=== PATIENT | female | born 1945 | race Caucasian/White ===

== ENCOUNTER 2017-12-25 04:40 | Emergency (ER) | payer MEDICARE, OTHER, SELFPAY ==
[2017-12-25 04:42] VITALS: BP 133/100; PULSE 91; RESP 20; TEMP 36.7; O2SAT 97; BMI 30.2
--- NOTE | 2017-12-25 05:02 | CT_ITS ---
STUDY: CT ABDOMEN AND PELVIS WITHOUT CONTRAST REASON FOR EXAM: Female, 72 years old. Abdominal pain RADIATION DOSAGE (If Supplied By Facility): CTDIvol = ( 15.20 ) mGy, DLP = ( 725.47 ) mGycm TECHNIQUE: Transaxial images were obtained from the dome of the diaphragm to the symphysis pubis without oral contrast, and without intravenous contrast. Sagittal and coronal images were reconstructed. Individualized dose optimization techniques were used for this CT. COMPARISON: None. FINDINGS: The visualized lung bases are unremarkable. The visualized portions of the heart are within normal limits. The liver is normal in size. There is a 2.6 cm cyst in the LEFT lobe of the liver. There is NO solid liver mass. There has been a cholecystectomy. The bile ducts are normal in caliber. Normal spleen. Normal pancreas. Normal bilateral adrenal glands. Normal right kidney. Normal left kidney. Normal visualized stomach. Normal small intestine. Normal colon. The appendix is visualized and appears normal. Normal abdominal aorta. Normal inferior vena cava. Normal retroperitoneum. Normal urinary bladder. Uterus and ovaries are unremarkable. There is NO ascites, free air, abscess or adenopathy. Normal abdominal wall. Normal osseous structures. CT/Abdomen/Pelvis without Cont IMPRESSION: The liver is normal in size. There is a 2.6 cm cyst in the LEFT lobe of the liver. There is NO solid liver mass. There has been a cholecystectomy. The bile ducts are normal in caliber. There are NO kidney stones. There is NO hydronephrosis. Normal visualized stomach. Normal small intestine. Normal colon. The appendix is visualized and appears normal. Uterus and ovaries are unremarkable. There is NO ascites, free air, abscess or adenopathy. Electronically Signed: Peyman Sellers MD at 6:07 EDT , Service support ,
--- NOTE | 2017-12-25 05:05 | ED.DCSUM_ITS ---
- ER Visit Summary Date of Service: 12/25/17 Chief Complaint: [Right flank pain] History of Present Illness: The patient is a 72 F [who presents the emergency department with right flank pain. It started yesterday afternoon as a twitching in her side. She went and played cards last night. She had increasing pain in her right back radiating around to the right side. It is worse with movement especially when she turns to the left. No nausea or vomiting bowel movements have been normal urination has been normal she had some chills before she went to bed last night. She has a history of hypertension hyperlipidemia PEs after hip surgery osteopenia she has had a cholecystectomy left hip fracture with surgery and right ankle surgery.] Physical Examination: [] Blood pressure 133/100 respiratory rate 20 heart rate 91 pulse ox 97% on room air temperature 98.1 WN WD NAD PERRL EOMI MMM NECK supple and nontender, no masses RRR no murmur rub or gallop, no peripheral edema, symmetric radial pulses CTAB no respiratory distress ABDOMEN is soft and nontender, normal bowel sounds, no distension, no rebound or guarding Patient has mild right CVA tenderness she has pain with forward bending and bending to the left she is neurovascularly intact distally SKIN is warm and dry no rashes Alert and Oriented x3, CN II-XII in tact, no motor or sensory deficits, gait normal No lymphadenopathy Test Results: [] Emergency Department Course and Treatment: [Screening labs are unremarkable. Urine was normal. CT of the abdomen and pelvis without contrast was obtained and shows a 2 cm liver cyst but no other acute problems. Patient is moderately improved after pain medicine and nausea medicine in the emergency department. This point I do believe this is likely musculoskeletal back pain. I did give her careful precautions for which to return. She will follow-up closely with her doctor] Treatment Plan: [] Disposition: [Discharge] Impression: [Right flank pain] This note was generated with [employer] dictation software. It may contain incorrect words, spelling, and punctuation that were not noted in review of the chart prior to signing ED Disposition - Plan for ED Patient: Chief Complaint: Flank Pain Referrals: Andrey Gonzalez MD [Primary Care Provider] -
[2017-12-25] MEDS: Morphine 4 MG/ML Syringe IV (05:12)
[2017-12-25] MEDS: 0.9% Normal Saline 1,000 ML 1000 ML IV (05:12)
[2017-12-25] MEDS: Ondansetron ODT 4 MG Tablet PO (05:15)
[2017-12-25 05:22] LABS: Absolute Lymphocyte Count 2.25 X10^3/ul (0.83-4.51); Absolute Neutrophil Count 5.1 X10^3/uL (2.0-7.7); Basophil# 0.02 X10^3/uL; Basophil% 0.2 % (0-1); Hematocrit 42.6 % (37-47); Hemoglobin 13.7 g/dl (12.0-15.0); Lymphocyte # 2.25 X10^3/ul (4.0); Lymphocyte % 27.5 % (19-41); Mean Corp Hgb Conc 32.2 g/gl (32-36); Mean Corpuscular Hgb 31.8 pg (27.0-32.0); Mean Corpuscular Volume 98.8 fL (81-99); Mean Platelet Vol. 10.6 fl (6.2-12.0); Monocyte# 0.85 X10^3/uL; Monocyte% 10.4 % (0-10); Neutrophil # 5.05 X10^3/uL (2.7-7.7); Neutrophil % 61.8 % (47-70); POSITIVE COUNT NO; POSITIVE DIFFERENTIAL NO; POSITIVE MORPHOLOGY NO; Platelet Count 248 K/mm3 (150-450); RBC Distribution Width CV 12.8 % (11.6-14.6); RBC Distribution Width SD 46.6 fl (35.1-43.9); Red Blood Count 4.31 M/mm3 (4.2-5.4); White Blood Count 8.2 K/mm3 (4.4-11.0)
[2017-12-25 05:23] LABS: Mucous, Urine 0 SEEN /hpf (<or=2+); Red Blood Cells-Urine 0 SEEN /hpf (0-5)
[2017-12-25 05:25] LABS: ALB/GLOB Ratio 1.1 RATIO (0.9-2.4); AST(SGOT) 20 U/L (15-37); Alanine Aminotransfer ALT/SGPT 27 U/L (13-56); Albumin, Serum 4.1 g/dL (3.2-5.0); Alkaline Phosphatase 62 U/L (45-117); Anion Gap 8 (5-15); BUN 16 mg/dL (7-18); BUN/Creat Ratio 17.8 RATIO (10-20); Calcium,Total 8.9 mg/dL (8.5-10.1); Chloride 106 mmol/L (98-107); EST Glomerular Filtration Rate 66 mL/min (>60); Est Glom Filt Rate - Afr Amer 80 mL/min (>60); Estimated Creatinine Clearance 48.11 ml/min; Globulin 3.6 g/dL (2.2-4.2); Glucose 109 mg/dL (74-106); Potassium 4.1 mmol/L (3.5-5.1); Protein, Total 7.7 g/dL (6.4-8.2); Sodium Level 142 mmol/L (136-145)
[2017-12-25 05:25] LABS: Color, Urine Yellow (Yellow); Glucose, Dipstick Normal (Normal); Ketone-Dipstick Negative (Negative); Leukocyte Esterase-Dipstick 100 /ul (Negative); Nitrite-Dipstick Negative (Negative); Occult Blood-Urine Negative /ul (Negative); Protein-Dipstick Negative (Negative); Urine Bilirubin Dipstick Negative (Negative); Urine Clarity Clear (Clear); Urine Urobilinogen Normal (Normal); Urine pH 6.5 (5.0 - 8.0)
[2017-12-25 05:45] LABS: Bacteria RARE /hpf (None Seen); Squamous Epithelial Cells - UA 0-5 SEEN /hpf (5-10); White Blood Cells 0-5 SEEN /hpf (0-5)
--- NOTE | 2017-12-25 06:22 | ED.DEP ---
ED Disposition - Plan for ED Patient: Chief Complaint: Flank Pain Instructions: ED Flank Pain Uncertain Cause Prescriptions: Hydrocodone Bitart/Apap 5-325 [[place] 5MG-325MG] 1 tablet PO Q6H PRN PRN 2 Days #7 tablet PRN Reason: Pain Referrals: Andrey Gonzalez MD [Primary Care Provider] - 12/28/17
--- NOTE | 2017-12-25 06:24 | DCINST.ED_ITS ---
ED Disposition - Plan for ED Patient: Chief Complaint: Flank Pain Instructions: ED Flank Pain Uncertain Cause Prescriptions: Hydrocodone Bitart/Apap 5-325 [[place] 5MG-325MG] 1 tablet PO Q6H PRN PRN 2 Days # 7 tablet PRN Reason: Pain Referrals: Andrey Gonzalez MD [Primary Care Provider] - 12/28/17
[2017-12-25 06:27] VITALS: BP 111/57; PULSE 74; RESP 19; O2SAT 98
== END 2017-12-25 06:31 | disposition home or self-care (01) ==
PROVIDERS: Emergency Provider Emergency Medicine; Family Provider Family Medicine; PCP Family Medicine
DX: R10.9 Unspecified abdominal pain (principal); I10 Essential (primary) hypertension; E78.00 Pure hypercholesterolemia, unspecified; M85.80 Other specified disorders of bone density and structure, unspecified site; Z79.899 Other long term (current) drug therapy
CPT/HCPCS: 74176; 80053; 81001; 85025; 96361; 96374; 99283; J7030; A4216

== ENCOUNTER → 2019-09-08 09:15 | Outpatient (CLI) | payer MEDICARE, OTHER, SELFPAY ==
[2019-09-08 11:06] LABS: Vitamin D,25 Hydroxy 28.8 ng/mL (29.95-100.01)
[2019-09-08 11:17] LABS: Anion Gap 6 (5-15); BUN 17 mg/dL (7-18); BUN/Creat Ratio 18.2 RATIO (10-20); Calcium,Total 9.1 mg/dL (8.5-10.1); Chloride 111 mmol/L (98-107); Cholesterol 162 mg/dL (200); Creatinine, Serum 0.93 mg/dL (0.55-1.02); EST Glomerular Filtration Rate 63 mL/min (>60); Est Glom Filt Rate - Afr Amer 76 mL/min (>60); Glucose 106 mg/dL (74-106); High Density Lipoprotein 47 mg/dL; Potassium 3.8 mmol/L (3.5-5.1); Sodium Level 143 mmol/L (136-145); Triglycerides 124 mg/dL; Very Low Density Lipoprotein 25 mg/dL (5-40)
== END ==
PROVIDERS: Family Provider Family Medicine; PCP Family Medicine; Referring Provider Family Medicine; Visit Provider Family Medicine
DX: I10 Essential (primary) hypertension (principal); E78.2 Mixed hyperlipidemia; E55.9 Vitamin D deficiency, unspecified
CPT/HCPCS: 36415; 80048; 80061; 82306

== ENCOUNTER 2023-12-06 15:03 | Outpatient (CLI) | payer MEDICARE, OTHER, SELFPAY ==
[2023-12-06 17:34] LABS: Absolute Neutrophil Count 5.6 X10^3/uL (2.0-7.7); Basophil# 0.06 X10^3/uL; Basophil% 0.7 % (0-1); Eosinophil# 0.21 X10^3/uL; Eosinophils% 2.4 % (0-5); Hematocrit 42.2 % (37-47); Hemoglobin 13.4 g/dL (12.0-15.0); Lymphocyte % 22.9 % (19-41); Mean Corp Hgb Conc 31.8 g/dL (32-36); Mean Corpuscular Hgb 31.5 pg (27.0-32.0); Mean Corpuscular Volume 99.3 fL (81-99); Mean Platelet Vol. 11.5 fl (6.2-12.0); Monocyte# 0.85 X10^3/uL; Monocyte% 9.7 % (0-10); NRBC Flagged by Analyzer 0 % (0-5); Neutrophil # 5.59 X10^3/uL (2.7-7.7); Platelet Count 252 K/mm3 (150-450); RBC Distribution Width CV 12.9 % (11.6-14.6); RBC Distribution Width SD 46.1 fl (35.1-43.9); Red Blood Count 4.25 M/mm3 (4.2-5.4); White Blood Count 8.7 K/mm3 (4.4-11.0)
[2023-12-06 17:50] LABS: Vitamin B12 589 pg/mL (211-911); Vitamin D,25 Hydroxy 30.6 ng/mL
[2023-12-06 17:59] LABS: ALB/GLOB Ratio 0.8 RATIO (0.9-2.4); AST(SGOT) 17 U/L (15-37); Alanine Aminotransfer ALT/SGPT 25 U/L (13-56); Albumin, Serum 3.5 g/dL (3.2-5.0); Alkaline Phosphatase 60 U/L (45-117); Anion Gap 5 (5-15); BUN 12 mg/dL (7-18); BUN/Creat Ratio 12.6 RATIO (10-20); Calcium,Total 8.6 mg/dL (8.5-10.1); Chloride 106 mmol/L (98-107); Creatinine, Serum 0.96 mg/dL (0.55-1.02); EST Glomerular Filtration Rate 60 mL/min (>60); Est Glom Filt Rate - Afr Amer 73 mL/min (>60); Ferritin 225 ng/mL (8-252); Globulin 4.2 g/dL (2.2-4.2); Glucose 126 mg/dL (74-106); Iron 70 ug/dL (50-170); Potassium 3.6 mmol/L (3.5-5.1); Protein, Total 7.7 g/dL (6.4-8.2); Sodium Level 141 mmol/L (136-145); Thyroid Stim Hormone (TSH) 1.51 uIU/mL (0.358-3.74)
== END 2023-12-06 23:59 | disposition home or self-care (01) ==
LOC: MFPLAB 15:04
PROVIDERS: PCP Family Medicine; Visit Provider Family Medicine
DX: R53.83 Other fatigue (principal); E55.9 Vitamin D deficiency, unspecified; E78.2 Mixed hyperlipidemia; I10 Essential (primary) hypertension
CPT/HCPCS: 36415; 80053; 82306; 82607; 82728; 83540; 84443; 85025

== ENCOUNTER → 2024-07-03 | Outpatient (CLI) | payer MEDICARE, OTHER, SELFPAY ==
--- NOTE | 2024-07-03 11:15 | RAD_ITS ---
EXAM: XR RIGHT SHOULDER COMPLETE, 2 OR MORE VIEWS CLINICAL INDICATION: bialteral shoulder pain and decreased rom TECHNIQUE: Two or more views of the right shoulder. COMPARISON: 07/17/2010. FINDINGS: BONES/JOINTS: Joint space narrowing with flattening of the humeral head and prominent marginal osteophytes. There are small bony densities inferior to the glenoid and humeral head that may be due to synovial osteochondromatosis. No acute fracture. No subluxation. Normal alignment. SOFT TISSUES: Unremarkable. No soft tissue swelling or gas. No radiopaque foreign body. 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 Electronically Signed: Koffi Vazquez MD at 3:02 EST ,
--- NOTE | 2024-07-03 11:15 | RAD_ITS ---
EXAM: XR CERVICAL SPINE, 4 OR 5 VIEWS CLINICAL INDICATION: bilateral shoulder pain TECHNIQUE: Frontal, lateral and bilateral oblique views of the cervical spine. COMPARISON: No relevant prior studies available. FINDINGS: VERTEBRAE: Slight anterior subluxation of C3 on C4 on a degenerative basis. Diffuse bilateral multilevel facet arthropathy. DISC SPACES: Marked disc space narrowing and marginal osteophytes C5-C6, C6-C7, and C7-T1. Uncovertebral joint osteophytes bilaterally at C5-C6 and C6-C7 that may cause neural foraminal narrowing. SOFT TISSUES: Unremarkable. No prevertebral soft tissue widening. LUNG APICES: Clear. RAD/Cerv Spine 4 or 5 Views IMPRESSION: 1. Slight anterior subluxation of C3 on C4 on a degenerative basis. 2. Diffuse bilateral multilevel facet arthropathy. 3. Marked spondylosis C5-C6, C6-C7, and C7-T1. 4. Uncovertebral joint osteophytes bilaterally at C5-C6 and C6-C7 that may cause neural foraminal narrowing. Electronically Signed: Koffi Vazquez MD at 3:05 EST ,
--- NOTE | 2024-07-03 11:16 | RAD_ITS ---
EXAM: XR LEFT SHOULDER COMPLETE, 2 OR MORE VIEWS CLINICAL INDICATION: bialteral shoulder pain and decreased rom TECHNIQUE: Two or more views of the left shoulder. COMPARISON: 08/05/2008 FINDINGS: BONES/JOINTS: Joint space narrowing with flattening of the humeral head and prominent marginal osteophytes. There are small bony densities inferior to the glenoid and humeral head that may be due to synovial osteochondromatosis. No acute fracture. No subluxation. Normal alignment. SOFT TISSUES: Unremarkable. No soft tissue swelling or gas. No radiopaque foreign body. 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 Electronically Signed: Koffi Vazquez MD at 3:01 EST ,
== END | disposition home or self-care (01) ==
PROVIDERS: PCP Family Medicine; Referring Provider Family Medicine; Visit Provider Family Medicine
DX: M25.511 Pain in right shoulder (principal); M25.512 Pain in left shoulder
CPT/HCPCS: 72050; 73030

== ENCOUNTER 2024-09-07 12:00 | Outpatient (RCR) | payer MEDICARE, OTHER, SELFPAY ==
--- NOTE | 2024-07-13 12:52 | HP.PTEVAL ---
Patient's Visit Information Visit Information Visit Information: GARY PARIS is a 78 year old F referred to Physical Therapy by Dr. Marco Gonzalez MD with a diagnosis of DDD neck. Date of Evaluation: 07/13/24 Physical Therapist: Andrew Morgan, DPT, OCS, CSCS Visit Plan Frequency: 2x /Week Duration: 4-6 Weeks Plan: 2x/week for 3-6 for 1. shoulder ROM ex progression, pec stretches, RC, scap and shoulder strength, neck strength to I home program. Can do MH and manual PROM and g-h mobs if needed for ROM. IE: IE: scap circles 10x, wall wash flexion 10x, stick er 10x, all 2x/day and given link to buy pulleys via Store Subjective Subjective: Dr. Gonzalez sent over b/c for the last number of years, she has a hard time lifting arms due to shoulder pain and tightness. X rays of shoulders OA. Also DDD in neck. neck hurts at times intermittently and throbs near base of skull R side. No pattern to this pain. Shoulders ache but pain with movement B. No numbness or tingling in UE. Moved back up from [place] a year ago and slightly worse. Needed help putting coat on and shirts at times. Is on [place] for previous blood clot in lungs years ago. Now aches when the weather changes and arms feel weak. needs to get back into working out. Sleep is OK . 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 Shopping. Basic ADLs: all I. Stairs are OK Hobbies: social for dinner theaters. and comfortable. No regualr ex anymore. Pain shoulders: Pain Intensity (Out of 10): 0 Pain Intensity Range: 0 and 5 neck: Pain Intensity (Out of 10): 0 Pain Intensity Range: 0 and 4 Objective Objective: Walks and trasnfers bed and chair I today. Posture is forward head and protracted scap with tightness apparent pec minor. Tender shoulder joints ant and post mild B and into UT and supra muscle belly. cervical aROM 45 B rotation and 45 extension with tightness at end range but not pain. Shoulder AROM elevation 110 initiallly flexiona dn abd with tightness but 125 after stretching and pulleys today. L more painful than R. er 45 R and 40 L with pain end range, IR hesitant but L5 with discomfort B. elbows and wrists WFL reflexes bi and tri 2/3 Sensation WNL to gross light touch B LE. + scour B shoulder, - c/s compression, - ext rot lag test B, - sulcus B, - apprehension B. strength er 3 L and 3+ R, IR 4 B, shoulder flexion 3+ B pain on L. abd same. wrist and thumb 4/5 B without pain. Bi and tri 4/5 without pain. Balance/Special Test Scores Oswestry Neck Score: 14 Goals Goal 1:: Put on coat without pain Goal Time Frame: 4-6 Weeks Goal 2:: I appropriate HEp to limit future problems Goal Time Frame: 4-6 Weeks Goal 3:: 145 shoulder elevation and 55 er to ease ADLs Goal Time Frame: 4-6 Weeks Goal 4:: neck oswestry score 5 or better. Goal Time Frame: 4-6 Weeks Goal 5:: Pt feel 75% better in shoulder mobility and upper half stiffness. Goal Time Frame: 4-6 Weeks Rehabilitation Potential Physical Therapy Diagnosis: stiffness and weakness B shoulders and postural limiting comfortable funciton Rehabilitation Potential: Fair Anticipated Interventions Patient/Client Instruction: Educate patient on: Condition and Plan of Care For the Purpose of:: To decrease pain, To increase ROM, To improve nutrient delivery to tissue, To improve muscle performance and motor function and To increase tolerance to activity/condition/position Therapeutic Exercise to Include: Strength training, Postural training, Flexibilty training, Passive ROM and Active ROM For the Purpose of:: To decrease pain, To increase ROM, To improve nutrient delivery to tissue, To improve muscle performance and motor function and To improve gait and locomotor functions Manual Therapy Techniques to Include: Mobilization, Passive ROM and Soft tissue mobilization For the Purpose of:: To decrease pain, To increase ROM and To improve nutrient delivery to tissue Thermo therapy (hot pack): Yes For the Purpose of:: To improve nutrient delivery to tissue Text: Thank you for the opportunity to evaluate your patient. For Medicare and Medicare HMO plans, please review the plan of care and approve it. It will need to be FAXED BACK to us at [phone] for Medicare purposes. For Medicare only, by signing this I certify the plan of care. Please let me know if there are questions or concerns regarding this plan of care. Physician Signature: Date:
--- NOTE | 2024-09-07 12:46 | HP.PTDCSUM_ITS ---
Discharge Summary D/C summary: It has been my pleasure to treat GARY PARIS referred by Dr. Marco Gonzalez MD, with the diagnosis of DDD neck for a total of 13 visit(s). Discharge Date: 09/07/24 Please see the following information for a summary of their discharge status. Subjective Subjective: I can do a lot more. Putting coat on with lifting arm is better. Needs to stretch them out in am. Pain this week 3/10 L shoulder. HEP: most days. Sleep is pretty good. Activities at home are pretty normal, using bannister on steps. Going out of town soon. Will be out of town for a bit. HEP : will continue HEP while there. To [place] in October. Will continue band ex adn stretches. Pain shoulders: Pain Intensity (Out of 10): 1 neck: Pain Intensity (Out of 10): Unrated Overall Improvement % Improvement: 70 Objective Objective/Function: 120 AROM B shoulder, stiffness in both shoulders but L slight pain at end range. er 25 L and 40 R, again stiff but funcitonal for her., IR to L4 B. strength is 4- flexion L and 4 R, er 4- L and 4 r. IR 4+ B. Goals Goal 1:: Put on coat without pain Goal Progress: Goal Met Goal 2:: I appropriate HEp to limit future problems Goal Progress: Goal Met Goal 3:: 145 shoulder elevation and 55 er to ease ADLs Goal Progress: Progressing SLOW Goal 4:: neck oswestry score 5 or better. Goal Progress: Progressing Goal 5:: Pt feel 75% better in shoulder mobility and upper half stiffness. Goal Progress: Progressing Plan Plan: d/c D/C Information Discharge Comments: Pt going out of town and will continue via HEP. d/c sentence: If there are questions or concerns regarding this patient's physical therapy, [place] feel free to call me at [phone]. Thank you for the referral of this patient. Sincerely, Andrew Morgan, DPT, OCS, CSCS Balance/Gait/Functional tests Balance/Special Test Scores Oswestry Neck Score: 10 Improvement % Improvement: 70
== END 2024-09-07 13:27 | disposition home or self-care (01) ==
LOC: PT 12:00
PROVIDERS: PCP Family Medicine; Referring Provider Family Medicine; Visit Provider Family Medicine
DX: M50.30 Other cervical disc degeneration, unspecified cervical region (principal)
CPT/HCPCS: 97035; 97110; 97113; 97140; 97161; 97530

== ENCOUNTER 2024-10-11 07:40 | Day surgery (SDC) | payer MEDICARE, OTHER, SELFPAY ==
[2024-10-11] VITALS (8 sets, daily range): BP systolic 97–155; BP diastolic 65–97; PULSE 67–88; RESP 16–18; TEMP 36.5–36.8; O2SAT 92–98; BMI 31.6
--- NOTE | 2024-10-11 08:22 | HP.PCM_ITS ---
HPI - General General Date of Service: 10/11/24 HPI Narrative GARY PARIS, is a 78 F who presents first colonoscopy due to positive Cologuard. Patient denies any changes since her last office visit. Patient was able to hold her Eliquis x 3 days. Office visit 09/05/2024 HPI HPI: 78-year-old female presents due to positive Cologuard. Patient last colonoscopy was about 15 years ago. 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 Patient has bowel movements about every 1 to 2 days. Denies any blood. Patient denies any family history of colon cancer. Patient denies any abdominal pain/nausea/vomiting/reflux. Patient did have thrombectomy due to a saddle emboli about a year and a half ago in [place] and has been on Eliquis since then. [facility] Medical History (Updated 10/10/24 @ 09:44 by Carrie Ramachandran) Wears hearing aid Wears dentures Wears glasses Depression Post-menopausal Arthritis High cholesterol Pulmonary embolism Easy bruising Excessive bleeding Back pain Injury of head and neck Non-smoker Leg cramps History of irregular heartbeat History of rheumatic fever Hx of fracture of left hip H/O blood clots High blood pressure Hemorrhoids Positive colorectal cancer screening using Cologuard test Home Medications ?Medication ?Instructions ?Recorded ?Last Taken ?Type mirtazapine 15 mg tablet 15 mg PO QDAY 09/05/24 Unkno wn History apixaban 5 mg tablet (Eliquis) 5 mg PO BID 10/10/24 History atorvastatin 20 mg tablet 20 mg PO QHS 10/10/24 Unknow n History lisinopril 30 mg tablet 30 mg PO DAILY 10/10/24 Unkn own History Allergy/AdvReac Type Severity Reaction Status Date / Time Sulfa (Sulfonamide Allergy Rash Verified 10/11/24 07:57 Antibiotics) Surgical History (Updated 10/10/24 @ 09:44 by Carrie Ramachandran) Hx of tooth extraction History of mandibular surgery History of ankle surgery Hx of cholecystectomy Social History (Updated 09/05/24 @ 09:59 by Yael Snow LPN) Smoking Status: Never smoker alcohol intake: never substance use type: does not use Past Medical/Surgical History Planned Operation Planned Operative Procedure(s): COLONOSCOPY Cardiovascular Hx of Irregular Heartbeat and/or Afib: No Hx Heart Attack: No Hx Congestive Heart Failure: No Hx Rheumatic Fever: No Hx Hypertension: Yes Hx Pacemaker: No Respiratory HX of Shortness of Breath: No Hx Chronic Obstructive Pulmonary Disease (COPD): No Hx Asthma: No Hx Emphysema: No Hx Sleep Apnea: No Do You Snore Loudly (louder than talking or can be heard): No Do You Often Feel Tired/ Fatigued/ Sleepy Dring Daytime?: No Has Anyone Observed You Stop Breathing During Sleep?: No Result (for STOP score): Negative Smoking Status: Never smoker Gastrointestinal Hx Ulcer: No Special diet followed at home: Yes Neurological Hx Seizures: No Hx Multiple Sclerosis: No Hx Parkinson's Disease: No Hx Head/Neck Injury: No Hx Headaches: No Hx Back Injury/Pain: No Blood Disorder Hx High Cholesterol: Yes Hx Hepatitis: No Hx Anemia: No Musculoskeletal Hx Arthritis: No Hx Gout: No Endocrine Hx Diabetes: No Thyroid Disease: No Psycho/Social Hx Anxiety: No Hx Depression: Yes Hx Dementia: No Miscellaneous Hx Cancer: No Recent Exposure to Contagious Disease: No Allergies Sulfa (Sulfonamide Antibiotics) Allergy (Verified 10/11/24 07:57) Rash Discharge Is Pt Admitted From a Senior Care, or a Halfway: No After D/C, Where Do you Plan to Go: Return Home From the [facility] History Number of Risk Factors: 1 Vital Signs Vital Signs Vital Signs: 10/11/24 07:58 10/11/24 07:58 Temperature 97.7 F L Temperature Source Temporal Pulse Rate 88 Respiratory Rate 18 Respiratory Pattern Normal Blood Pressure 155/97 H Blood Pressure Mean 116 Blood Pressure Source Monitor Blood Pressure Position Semi-Fowlers Blood Pressure Location Left Arm Pulse Ox 98 Oxygen Delivery Method Room Air Weight Weight: 178 lb 9.191 oz Body Mass Index (BMI) 31.6 Physical Exam Const alert, oriented x3 and no apparent distress HEENT normocephalic and head/scalp atraumatic Resp normal respiratory effort Cardio regular rate GI soft to palpation and non-tender; Negative for non-distended Palpation: Negative for guarding Extremity no clubbing, cyanosis or edema Skin no rashes or lesions noted Neuro CN's II-XII intact bilaterally Psych mental status grossly normal Assessment & Plan Assessment/Plan (1) Positive colorectal cancer screening using Cologuard test: Surgery Risks - Colonoscopy I discussed with the patient the risks of the procedure: Yes Risks Include but are not Limited To: Risks include but are not limited to: Bleeding, perforation requiring further surgery, inability to complete colonoscopy requiring barium enema.
--- NOTE | 2024-10-11 08:46 | PCM.PRE.AN2 ---
ASA Classification* ASA Classification ASA Classification: 2 Assessment & Plan Anesthesia* Anesthesia Assessment Anesthesia Assessment: Discussed sedation and/or anesthesia options, risks, benefits, and alternatives with patient/parents/legal guardian/POA. Questions invited. The patient/parents/legal guardian/POA seems to understand and agrees to proceed with anesthesia plan. Reviewed the physical assessment, medical history, allergy history and patient home medications list prior to surgery/procedure/anesthetic and documented any changes. Performed airway and anesthesia risk assessments. Anesthesia Type Anesthesia Type: MAC Anesthesia Focused Assessment* Temperature: 97.7 F Pulse Rate: 88 Blood Pressure: 155/97 Respiratory Rate: 18 Pulse Ox: 98 Airway Assessment Mouth opens: >3 cm Mallampati Score: II Focused Labs Anesthesia Preop lab: CBC WBC 8.7 K/mm3 (4.4-11.0) 12/06/23 15:12/06/23 RBC 4.25 M/mm3 (4.2-5.4) 12/06/23 15:12/06/23 Hgb 13.4 g/dL (12.0-15.0) 12/06/23 15:12/06/23 Hct 42.2 % (37-47) 12/06/23 15:12/06/23 Plt Count 252 K/mm3 (150-450) 12/06/23 15:12/06/23 CHEMISTRY Potassium 3.6 mmol/L (3.5-5.1) 12/06/23 15:12/06/23 Sodium 141 mmol/L (136-145) 12/06/23 15:12/06/23 BUN 12 mg/dL (7-18) 12/06/23 15:12/06/23 Creatinine 0.96 mg/dL (0.55-1.02) 12/06/23 15:12/06/23 Glucose 126 mg/dL (74-106) H 12/06/23 15:12/06/23 TSH 1.51 uIU/mL (0.358-3.74) 12/06/23 15:12/06/23 COAG Pre-Assessment Diagnosis/Proposed Procedure Planned Operative Procedure(s): COLONOSCOPY Anesthesia History 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 When Was Last Pacemaker Check QUESTION #4 FULL TEXT: You/Your Family Experience fever (hyperthermia) with Anesthesia Last Oral Intake Last Oral intake: Last Oral Intake NPO since 00:00 10/11/24 07:58 Meds taken in AM with sips of No 10/11/24 07:58 water? Meds patient instructed to take am of surgery PONV PONV - geospatial scientist: PONV - geospatial scientist Female Yes 10/10/24 09:45 HX of Motion Sickness No 10/10/24 09:45 HX of N/V After Surgery No 10/10/24 09:45 Non-Smoker Yes 10/10/24 09:45 Duration of Surgery greater No 10/10/24 09:45 than 60 minutes Number of Risk Factors 2 10/10/24 09:45 PONV Score Moderate Risk 10/10/24 09:45 Height & Weight Height & Weight: Anesthesia: Height & Weight Height 5 ft 3 in 10/11/24 07:58 Weight: 81 kg 10/11/24 07:58 Body Mass Index (BMI) 31.6 10/11/24 07:58 Respiratory Assessment Respiratory Assessment - geospatial scientist: Respiratory Tract Infection Hx - geospatial scientist Hx Respiratory Tract Infection No 10/10/24 09:45 STOP Sleep Apnea STOP Sleep Apnea - geospatial scientist: STOP Sleep Apnea - geospatial scientist Hx Hypertension Yes 10/11/24 08:23 Hx Sleep Apnea No 10/11/24 08:23 CPAP BIPAP Do you snore loudly (louder No 10/11/24 08:23 than talking or can be heard Do you often feel tired/ No 10/11/24 08:23 fatigued/ sleepy during daytime? Has anyone observed you stop No 10/11/24 08:23 breathing during sleep? STOP Results Negative 10/11/24 08:23 QUESTION #5 FULL TEXT : Do you snore loudly (louder than talking or can be heard through closed doors)? 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 Specify any problems Hx of Preganancy in last 3 No 10/10/24 09:45 Months Nurse Filling Out Transfusion VCHRISTIN 10/10/24 09:45 & Questions: Date: 10/10/24 10/10/24 09:45 Time: 09:46 10/10/24 09:45 Patient unable to answer at this time (ie. confused, unrespo /Reproduction History /Reproductive History - geospatial scientist: /Reproductive Hx- geospatial scientist Hx Now Gestational Age (in weeks): EDC: Hx Hx Para Hx Section SAB PFSH Medical History Wears hearing aid Wears dentures Wears glasses Depression Post-menopausal Arthritis High cholesterol Pulmonary embolism Easy bruising Excessive bleeding Back pain Injury of head and neck Non-smoker Leg cramps History of irregular heartbeat History of rheumatic fever Hx of fracture of left hip H/O blood clots High blood pressure Hemorrhoids Positive colorectal cancer screening using Cologuard test Home Medications ?Medication ?Instructions ?Recorded ?Last Taken ?Type mirtazapine 15 mg tablet 15 mg PO QDAY 09/05/24 Unknown History apixaban 5 mg tablet (Eliquis) 5 mg PO BID 10/10/24 10/07/24 History atorvastatin 20 mg tablet 20 mg PO QHS 10/10/24 Unknown History lisinopril 30 mg tablet 30 mg PO DAILY 10/10/24 Unknown History Allergy/AdvReac Type Severity Reaction Status Date / Time Sulfa (Sulfonamide Allergy Rash Verified 10/11/24 07:57 Antibiotics) Surgical History Hx of tooth extraction History of mandibular surgery History of ankle surgery Hx of cholecystectomy Social History Smoking Status: Never smoker alcohol intake: never substance use type: does not use Review of Systems (Anesthesia) ROS Narrative System reviewed and no additional complaints, except as documented.
--- NOTE | 2024-10-11 09:00 | COLBX_PTH ---
PATIENT: GARY PARIS LOC: EN U#:[id number] AGE/SX: 78/F ROOM: RE10/11/[address]: Dr. Carol Donald MD : 1945 BED: DIS: 10/11/2024 SPEC #: [id number] RECD: 10/11/24 11:15 STATUS: DEQUAN REMinda #: [id number] SANDRA: 10/11/24 09:[address]: Carol Donald DEPT: SURGICAL PATHOLOGY RECD BY: Shantell Shipley ENTERED: 10/11/24 11:51 SP TYPE: COLON BX OTHR DR: Dr. Marco Gonzalez MD Tissues: A - Cecum, NOS B - Ascending colon C - Rectum, NOS Procedures: Surgery Specimen Level IV HEADER OPERATION: Colonoscopy with biopsy of polyp, polypectomy PRE-OP DIAGNOSIS: Positive colorectal cancer screening using Cologuard test TISSUE SUBMITTED: A- Cecum polyp x2, B- Ascending colon polyp x3, C- Rectum polyp x1 MICROSCOPIC DIAGNOSIS A. Cecum polyp x2, polypectomy: Fragments of tubulovillous adenoma. B. Ascending colon polyp x3, polypectomy: Fragments of tubular adenoma. C. Rectum polyp x1, polypectomy: Hyperplastic polyp. 10/12/2024 MICROSCOPIC DESCRIPTION Slides are reviewed. GROSS DESCRIPTION A. Received in fixative is one container labeled with the patient's name and designated Cecum polyp x2. The specimen consists of multiple irregular fragments of light lynn soft tissue that in aggregate measure 1.5 x 1 x 0.1 cm. The specimen is totally submitted in one cassette. B. Received in fixative is one container labeled with the patient's name and designated Ascending colon polyp x3. The specimen consists of multiple irregular fragments of light lynn soft tissue that in aggregate measure 1 x 0.8 x 0.1 cm. The specimen is totally submitted in one cassette. C. Received in fixative is one container labeled with the patient's name and designated Rectum polyp x1. The specimen consists of one irregular fragment of light lynn soft tissue that measures 0.2 x 0.2 x 0.1 cm. The specimen is totally submitted in one cassette. 10/11/2024 TC:1 CPT:05207i2
--- NOTE | 2024-10-11 10:15 | OP.COLON_ITS ---
Patient Name: Loc Rodriguez Procedure Date: 10/11/2024 9:24 AM Date of : 1945 Age: 78 Procedure: Colonoscopy Indications: Positive Cologuard test Providers: Carol Donald MD Referring MD: Andrey Gonzalez Medicines: Monitored Anesthesia Care Patient Profile: This is a 78 year old female. Last Colonoscopy: more than 10 years ago. Complications: No immediate complications. Procedure: Pre-Anesthesia Assessment: - Prior to the procedure, a History and Physical was performed, and patient medications and allergies were reviewed. The patient's tolerance of previous anesthesia was also reviewed. The risks and benefits of the procedure and the sedation options and risks were discussed with the patient. All questions were answered, and informed consent was obtained. Prior Anticoagulants: The patient has taken Eliquis (apixaban), last dose was 3 days prior to procedure. ASA Grade Assessment: Per anesthesia. After reviewing the risks and benefits, the patient was deemed in satisfactory condition to undergo the procedure. After I obtained informed consent, the scope was passed under direct vision. Throughout the procedure, the patient's blood pressure, pulse, and oxygen saturations were monitored continuously. The pediatric colonoscope was introduced through the anus and advanced to the cecum, identified by the appendiceal orifice, ileocecal valve and palpation. The colonoscopy was performed without difficulty. The patient tolerated the procedure well. The quality of the bowel preparation was good. Scope In: 9:32:36 AM Scope Withdrawal Time 0 hours 20 minutes 46 seconds Scope Out: 10:09:28 AM Total Procedure Duration Time 0 hours 36 minutes 52 seconds Findings: Hemorrhoids were found on perianal exam. Scattered small-mouthed diverticula were found in the sigmoid colon and ascending colon. A 6 mm polyp was found in the cecum. The polyp was multi-lobulated. The polyp was removed with a hot snare. Complete with kim net. Five sessile polyps were found in the rectum, ascending colon and cecum. The polyps were less than 5 mm in size. These polyps were removed with a cold biopsy forceps. Resection and retrieval were complete. The exam was otherwise without abnormality. Impression: - Hemorrhoids found on perianal exam. - Diverticulosis in the sigmoid colon and in the ascending colon. - One 6 mm polyp in the cecum, removed with a hot snare. - Five less than 5 mm polyps in the rectum, in the ascending colon and in the cecum, removed with a cold biopsy forceps. Resected and retrieved. - The examination was otherwise normal. Recommendation: - Discharge patient to home. - Resume previous diet. - Continue present medications. - Await pathology results. - Repeat colonoscopy in 3 - 5 years for surveillance based on pathology results. Procedure Code(s): --- Professional --- 56160, Colonoscopy, flexible; with removal of tumor(s), polyp(s), or other lesion(s) by snare technique 33019, 59, Colonoscopy, flexible; with biopsy, single or multiple Diagnosis Code(s): --- Professional --- K64.9, Unspecified hemorrhoids D12.0, Benign neoplasm of cecum D12.8, Benign neoplasm of rectum D12.2, Benign neoplasm of ascending colon R19.5, Other fecal abnormalities K57.30, Diverticulosis of large intestine without perforation or abscess without bleeding CPT copyright 2021 [employer]. All rights reserved. The codes documented in this report are preliminary and upon qc scientist review may be revised to meet current compliance requirements. MD Carol Buitrago MD 10/11/2024 10:15:12 AM This report has been signed electronically. Number of Addenda: 0 Note Initiated On: 10/11/2024 9:24 AM
--- NOTE | 2024-10-11 10:16 | OP.CCLET_ITS ---
10/11/2024 Andrey Gonzalez [address] [place] [address] Re : Colonoscopy procedure for Loc Rodriguez Dear Dr. Gonzalez This procedure was performed on Friday, October 11, 2024. My impressions and recommendations are as follows: Impressions : - Hemorrhoids found on perianal exam. - Diverticulosis in the sigmoid colon and in the ascending colon. - One 6 mm polyp in the cecum, removed with a hot snare. - Five less than 5 mm polyps in the rectum, in the ascending colon and in the cecum, removed with a cold biopsy forceps. Resected and retrieved. - The examination was otherwise normal. Recommendations : - Discharge patient to home. - Resume previous diet. - Continue present medications. - Await pathology results. - Repeat colonoscopy in 3 - 5 years for surveillance based on pathology results. My findings are described in the full procedure note, which is enclosed. If I can be of further assistance, please feel free to contact me at Doctor phone number(s): , Work: . Sincerely, MD Carol Buitrago MD 10/11/2024 10:15:12 AM This report has been signed electronically.
--- NOTE | 2024-10-11 10:26 | PCM.POST.ANE ---
Anesthesia: Postop Eval I Current Vital Signs Temperature: 98 F Pulse Rate: 70 Blood Pressure: 118/67 Respiratory Rate: 16 Pulse Ox: 92 Oxygen Delivery Method: Room Air Assessment Airway patent: Yes Spontaneous unlabored respirations: Yes Mental status: Awake and Calm nausea: No Vomiting: No Anesthesia Complication: Yes Anesthesia Complication Comment:: intra-procedure emesis episode, suctioned, no drop in O2 sat Fluid Hydration Crystalloid volume administer (ml): 60 Total IV fluid infused: 60 Progress Note Anesthesia document: Postop Eval 1 completed: Yes
== END 2024-10-11 11:17 | disposition home or self-care (01) ==
LOC: EN 07:42 → AC 07:44
PROVIDERS: PCP Family Medicine; Referring Provider Family Medicine; Visit Provider Surgery
PROC: 0DJD8ZZ Inspection of Lower Intestinal Tract, Via Natural or Artificial Opening Endoscopic (ICD-10-PCS; CPT 45378; principal; 2024-10-11 08:55)
DX: Z12.11 Encounter for screening for malignant neoplasm of colon (principal); K64.9 Unspecified hemorrhoids; D12.0 Benign neoplasm of cecum; K57.30 Diverticulosis of large intestine without perforation or abscess without bleeding; E78.00 Pure hypercholesterolemia, unspecified; D12.2 Benign neoplasm of ascending colon; D12.8 Benign neoplasm of rectum; R19.5 Other fecal abnormalities; I10 Essential (primary) hypertension; Z79.899 Other long term (current) drug therapy; Z79.01 Long term (current) use of anticoagulants; Z86.711 Personal history of pulmonary embolism
CPT/HCPCS: 45380; 45385; 88305; A4216; J2405

== ENCOUNTER → 2025-03-22 | Outpatient (CLI) | payer MEDICARE, OTHER, SELFPAY ==
--- NOTE | 2025-03-22 14:42 | BI_ITS ---
EXAM: SCRN MAMM (CAD)W/SARA BILAT DATE: 03/22/2025 CLINICAL HISTORY: F, Age 79 y/o , SCREENING TECHNIQUE: SCRN MAMM (CAD)W/SARA BILAT COMPARISON: Prior exam(s) dated 06/19/2022, 05/20/2021. FINDINGS: TISSUE DENSITY: There are scattered areas of fibroglandular density. Bilateral Breast Mammographic Findings: No significant masses, calcifications or other abnormalities are identified. BI/SCRN MAMM (CAD)W/SARA BILAT IMPRESSION: There is no mammographic evidence of malignancy. OVERALL FINAL ASSESSMENT BI-RADS 1: NEGATIVE. RECOMMENDATION: Routine annual follow-up in 1 Year A letter with findings and recommendations will be mailed to the patient. Reading Location: [id number]
--- NOTE | 2025-03-22 14:42 | BD_ITS ---
PROCEDURE: DEXA BONE DENSITY STUDY 03/22/2025 REASON FOR EXAM: F, age 79 y/o . Postmenopausal. TECHNIQUE: DEXA BONE DENSITY STUDY COMPARISON: Prior study dated December 24, 2016. FINDINGS: BMD and T-SCORES Lumbar spine: 0.968 g/cm2, T-score -0.7 Levels: L1 through L4 Change from prior: Loss of 5.4%. Right femoral neck: 0.657 g/cm2, T-score -1.7 Femoral neck comparison data not recommended for monitoring change. Right total hip: 0.860 g/cm2, T-score -0.7 Change from prior: Loss of 5.1%. The World Health Organization has defined the following categories based on bone density: Normal bone density: T-score equal to or greater than -1.0 Osteopenia: T-score between -1.0 and -2.5 Osteoporosis: T-score equal to or less than -2.5 The patient does meet the pharmacological treatment recommendations for prevention of osteoporosis. BD/Dexa Bone Density Study IMPRESSION: OSTEOPENIA. Recommend follow-up as clinically warranted. Reading Location: [id number]
== END | disposition home or self-care (01) ==
LOC: OPBD 14:39
PROVIDERS: PCP Family Medicine
DX: Z12.31 Encounter for screening mammogram for malignant neoplasm of breast (principal); M85.88 Other specified disorders of bone density and structure, other site
CPT/HCPCS: 77063; 77067; 77080

== ENCOUNTER → 2025-06-11 | Outpatient (CLI) | payer MEDICARE, OTHER, SELFPAY ==
[2025-06-11 13:49] LABS: Chloride 103 mmol/L (98-108); Potassium 4.2 mmol/L (3.3-5.1)
[2025-06-11 14:52] LABS: AST(SGOT) 26 U/L (<=31); Alanine Aminotransfer ALT/SGPT 26 U/L (<=34); Albumin, Serum 4.3 g/dL (3.4-4.8); Alkaline Phosphatase 47 U/L (35-104); Anion Gap 13 (5-15); BUN 17 mg/dL (4-19); BUN/Creat Ratio 18.7 RATIO (10-20); Calcium,Total 10.2 mg/dL (7.6-11.0); Carbon Dioxide 24.7 mmol/L (21.0-32.0); Cholesterol 173 mg/dL (<=200); Globulin 3.3 g/dL (2.2-4.2); Glucose 107 mg/dL (70-99); Low Density Lipoprotein Calc. 72 mg/dL; Magnesium 2.1 mg/dL (1.5-2.2); Triglycerides 258 mg/dL; Very Low Density Lipoprotein 52 mg/dL (5-40); Vitamin D,25 Hydroxy 39.3 ng/mL (30-100); cholesterol:hdl ratio screen 3.50
== END | disposition home or self-care (01) ==
LOC: MTLAB 10:59
PROVIDERS: PCP Family Medicine; Referring Provider Family Medicine; Visit Provider Family Medicine
DX: E78.2 Mixed hyperlipidemia (principal); E55.9 Vitamin D deficiency, unspecified; R25.2 Cramp and spasm; M85.80 Other specified disorders of bone density and structure, unspecified site
CPT/HCPCS: 36415; 80053; 80061; 82306; 83735; 84443